=== PATIENT | male | born 1990 | race American Indian/Alaskan Native ===

== ENCOUNTER 2017-01-28 11:22 | Emergency (ER) | payer SELFPAY ==
[2017-01-28 11:25] VITALS: BMI 24.1
[2017-01-28 11:35] VITALS: TEMP 98.3; O2SAT 100
[2017-01-28] MEDS ORDERED: Sodium Chloride 0.9% 1,000 ML IV STA (11:51)
[2017-01-28 12:28] LABS: ADD MANUAL DIFF? NO
[2017-01-28 12:33] LABS: BASO # 0.03 K/mm3 (0.0-2.0); BASO % 0.8 % (0.0-3.0); EOS # 0.1 (0.0-0.7); EOS % 1.8 % (1.5-5.0); GRAN # 2.38 (1.4-6.5); GRAN % 59.7 % (50.0-68.0); HEMATOCRIT 42.1 % (42.0-52.0); LYMPH # 1.2 (1.2-3.4); LYMPH % 30.4 % (22.0-35.0); MEAN CELL VOLUME 99.3 fL (80.0-105.0); MEAN CORPUSCULAR HEMOGLOBIN 34.9 pg (25.0-35.0); MEAN CORPUSCULAR HGB CONC 35.2 g/dl (31.0-37.0); MEAN PLATELET VOLUME 9.2 fl (7.0-11.0); MONO # 0.3 (0.1-0.6); MONO % 7.3 % (1.0-6.0); PLATELET COUNT 259 10^3/uL (120.0-450.0); RED CELL DISTRIBUTION WIDTH 12.2 % (11.5-14.5)
[2017-01-28 12:40] LABS: ALB/GLOB RATIO 1.2 (1.1-1.8); ALKALINE PHOSPHATASE 53 U/L (38-133); ALT/SGPT 32 U/L (7-56); AST/SGOT 37 U/L (15-59); BILIRUBIN,TOTAL 0.8 mg/dL (0.2-1.3); BLOOD UREA NITROGEN 14 mg/dL (7-21); CARBON DIOXIDE 30 mmol/L (21-33); CHLORIDE 102 mmol/L (98-107); GFR AFRICAN-AMERICAN > 60; GLUCOSE,RANDOM 86 mg/dL (70-110); LIPASE 63 U/L (23-300); SODIUM 143 mmol/L (132-148); TOTAL PROTEIN 8.4 g/dL (5.8-8.3)
[2017-01-28 13:57] VITALS: BP 128/83; PULSE 68; RESP 16
--- NOTE | 2017-01-28 14:27 | ED PDOC ---
Arrival/HPI - General Chief Complaint: Headache Time Seen by Provider: 01/28/17 11:35 - History of Present Illness Narrative History of Present Illness (Text): 01/28/17 11:38 Igor Bell is a 27 year old male who presents to the emergency department complaining of a headache that is "behind his eyes", intermittently for months. Patient also endorses mild epigastric pain accompanied with mild nausea but with no vomiting, fever, chest pain, or shortness of breath. Patient states he is very night sided and has not worn his glasses in months. Patient is unable to see a relatively close digital advisor on the wall of his room. PMD: None reported. Time/Duration: > month Symptom Onset: Gradual Symptom Course: Intermittent Context: Home Past Medical History - Provider Review Nursing Documentation Reviewed: Yes - Past History Past History: No Previous - Infectious Disease Hx of Infectious Diseases: None - Reproductive Currently : No - Past Medical History Past Medical History: No Previous - Psychiatric Hx Depression: No Hx Emotional Abuse: No Hx Physical Abuse: No Hx Substance Use: Yes - Past Surgical History Past Surgical History: No Previous - Anesthesia Hx Anesthesia: No - Suicidal Assessment Feels Threatened In Home Enviroment: No Family/Social History - Physician Review Nursing Documentation Reviewed: Yes Family/Social History: No Known Family HX Smoking Status: Never Smoked Hx Alcohol Use: Yes Hx Substance Use: Yes Hx Substance Use Treatment: No Allergies/Home Meds Allergies/Adverse Reactions: Allergies No Known Allergies Allergy (Verified 01/28/17 11:33) Review of Systems - Physician Review All systems were reviewed & negative as marked: Yes - Review of Systems Constitutional: Normal. absent: Fevers Eyes: Normal ENT: Normal Respiratory: Normal. absent: SOB, Cough Cardiovascular: Normal. absent: Chest Pain Gastrointestinal: Abdominal Pain (epigastric pain), Nausea. absent: Vomiting, Appetite Changes Genitourinary Male: Normal. absent: Dysuria, Frequency, Hematuria, Urinary Output Changes Musculoskeletal: Normal. absent: Back Pain, Neck Pain Skin: Normal Neurological: Headache. absent: Dizziness Endocrine: Normal Hemo/Lymphatic: Normal Psychiatric: Normal Physical Exam Vital Signs Reviewed: Yes Vital Signs Temp Pulse Resp BP Pulse Ox 01/28/17 13:53 68 16 128/83 100 01/28/17 11:34 98.3 F 70 18 126/79 100 Temperature: Afebrile Blood Pressure: Normal Pulse: Regular Respiratory Rate: Normal Appearance: Positive for: Well-Appearing, Non-Toxic, Comfortable Pain Distress: None Mental Status: Positive for: Alert and Oriented X 3 - Systems Exam Head: Present: Atraumatic, Normocephalic Pupils: Present: PERRL Extroacular Muscles: Present: EOMI Conjunctiva: Present: Normal Mouth: Present: Moist Mucous Membranes Respiratory/Chest: Present: Clear to Auscultation, Good Air Exchange. No: Respiratory Distress, Accessory Muscle Use Cardiovascular: Present: Regular Rate and Rhythm, Normal S1, S2. No: Murmurs Abdomen: Present: Tenderness (Epigastric Tenderness), Normal Bowel Sounds. No: Distention, Peritoneal Signs Neurological: Present: GCS=15, CN II-XII Intact, Speech Normal Skin: Present: Warm, Dry, Normal Color. No: Rashes Psychiatric: Present: Alert, Oriented x 3, Normal Insight, Normal Concentration Medical Decision Making ED Course and Treatment: 01/28/17 11:38 Impression: 27 year old male complaining of headache that is focused behind the eyes and epigastric discomfort with mild nausea. Plan: -- CXR -- EKG -- Labs, Urinalysis -- IV Fluids -- Pepcid -- Zofran -- Reassess and disposition Prior Visits: Notes and results from previous visits were reviewed. Patient was last seen in the emergency department on 06/27/15 for abdominal pain. Progress Notes: 01/28/17 13:50 On re-evaluation, the patient feels better and is in no acute distress. I have discussed the results and plan with the patient, who expresses understanding. Patient in agreement with plan to discharged home. Patient is stable for discharge. Patient was instructed to follow up with physician/clinic in 1-2 days or return if symptoms worsen or new concerning symptoms arise. Re-evaluation Time: 13:45 Reassessment Condition: Re-examined - Lab Interpretations Lab Results: 01/28/17 12:20 01/28/17 12:20 Lab Results 01/28/17 12:20: Alcohol, Quantitative 129 H 01/28/17 12:20: Sodium 143, Potassium 4.0, Chloride 102, Carbon Dioxide 30, Anion Gap 15, BUN 14, Creatinine 1.1, Est GFR ( Amer) > 60, Est GFR (Non- Af Amer) > 60, Random Glucose 86, Calcium 9.0, Total Bilirubin 0.8, AST 37, ALT 32, Alkaline Phosphatase 53, Total Protein 8.4 H, Albumin 4.5, Globulin 3.9, Albumin/Globulin Ratio 1.2, Lipase 63 01/28/17 12:20: WBC 4.0 L D, RBC 4.24, Hgb 14.8, Hct 42.1, MCV 99.3, MCH 34.9, MCHC 35.2, RDW 12.2, Plt Count 259, MPV 9.2, Gran % 59.7, Lymph % (Auto) 30.4, [place] % (Auto) 7.3 H, Eos % (Auto) 1.8, Baso % (Auto) 0.8, Gran # 2.38, Lymph # 1.2, Oxford # 0.3, Eos # 0.1, Baso # 0.03 I have reviewed the lab results: Yes - RAD Interpretation Radiology Orders: 01/28/17 11:56 CHEST PORTABLE [RAD] Stat Microfilm Mounter: Radiologist - Medication Orders Current Medication Orders: Discontinued Medications Famotidine (Pepcid) 20 mg IVP STAT STA Stop: 01/28/17 11:52 Last Admin: 01/28/17 12:21 Dose: 20 mg Sodium Chloride (Sodium Chloride 0.9%) 1,000 mls @ 1,000 mls/hr IV .Q1H STA Stop: 01/28/17 12:50 Last Admin: 01/28/17 12:22 Dose: 1,000 mls/hr Ondansetron HCl (Zofran Inj) 4 mg IVP STAT STA Stop: 01/28/17 11:52 Last Admin: 01/28/17 12:22 Dose: 4 mg - Germaineibe Statement The provider has reviewed the documentation as recorded by the Jasmeet Washington Provider Attestation: All medical record entries made by the Jasmeet were at my direction and personally dictated by me. I have reviewed the chart and agree that the record accurately reflects my personal performance of the history, physical exam, medical decision making, and the department course for this patient. I have also personally directed, reviewed, and agree with the discharge instructions and disposition. Disposition/Present on Arrival - Present on Arrival Any Indicators Present on Arrival: No History of DVT/PE: No History of Uncontrolled Diabetes: No Urinary Catheter: No History of Decub. Ulcer: No History Surgical Site Infection Following: None - Disposition Have Diagnosis and Disposition been Completed?: Yes Diagnosis: Myopia of both eyes, Gastritis Disposition: HOME/ ROUTINE Disposition Time: 12:50 Condition: IMPROVED Discharge Instructions (ExitCare): Refractive Errors of the Eye (ED) Additional Instructions: Thank you for letting us take care of you today. Your provider was Dr. Polk. You were treated for gastritis and near-sightedness. The emergency medical care you received today was directed at your acute symptoms. If you were prescribed any medication, please fill it and take as directed. It may take several days for your symptoms to resolve. Return to the Emergency Department if your symptoms worsen, do not improve, or if you have any other problems. Please contact your doctor or call one of the physicians/clinics you have been referred to that are listed on the Patient Visit Information form that is included in your discharge packet. Bring any paperwork you were given at discharge with you along with any medications you are taking to your follow up visit. Our treatment cannot replace ongoing medical care by a primary care provider (PCP) outside of the emergency department. [facility]. Follow up with the clinic this week for outpatient care. Call the assistant administrator service for a referral to an senior sales executive (eye doctor). Prescriptions: Ranitidine HCl [Zantac] 150 mg PO BID #20 tablet Referrals: [facility] [Outside] - [place] up with [place] [facility] - Follow up with primary PCP,NO [Primary Care Provider] - Follow up with primary
--- NOTE | 2017-01-28 14:51 | CARD ---
APPROVED REPORT EKG Measurement Heart [id number] <Conclusion> Normal sinus rhythm Normal ECG
--- NOTE | 2017-01-28 17:58 | RAD ---
HISTORY: r/o infiltrate COMPARISON: No prior. FINDINGS: LUNGS: No active pulmonary disease. PLEURA: No significant pleural effusion identified, no pneumothorax apparent. CARDIOVASCULAR: Normal. OSSEOUS STRUCTURES: No significant abnormalities. VISUALIZED UPPER ABDOMEN: Normal. OTHER FINDINGS: None. IMPRESSION: No active disease.
== END 2017-01-28 13:57 | disposition home or self-care (01) ==
LOC: ED 11:22
DX: K29.70 Gastritis, unspecified, without bleeding (principal); H52.13 Myopia, bilateral
CPT/HCPCS: 71010; 80053; 83690; 85025; 93005; 96374; 96375; 99285; G0480; J2405; J7040